=== PATIENT | female | born 1950 | race Caucasian/White ===

== ENCOUNTER 2017-10-19 15:12 | Observation (INO) ==
[2017-10-19] MEDS ORDERED: *HR* FentaNYL (PF) 100 MCG/2 ML VIAL IVP ONE ×2 (15:26→16:04)
[2017-10-19] MEDS ORDERED: 0.9 % Sodium Chloride 1,000 ML IVC ONE (15:26)
[2017-10-19] MEDS ORDERED: Ondansetron 4 MG/2 ML VIAL IVP ONE (15:26)
--- NOTE | 2017-10-19 15:31 | Emergency Department Note ---
Disposition Clinical Impression: Diverticulitis, Bigeminy Abdominal pain Qualifiers: Abdominal location: generalized Qualified Code(s): R10.84 - Generalized abdominal pain Leukocytosis Qualifiers: Leukocytosis type: unspecified Qualified Code(s): D72.829 - Elevated white blood cell count, unspecified Disposition: Admitted As Inpatient Condition: Fair Referrals: Robbie Croft DO [Primary Care Provider] - Forms: ED Satisfaction Letter, Work/School Release Time of Disposition: 16:05 Abdominal Pain HPI - General Chief Complaint: ED Abdominal Pain Stated Complaint: rectal bleeding Time Seen by Provider: 10/19/17 15:22 Source: patient Mode of arrival: ambulatory Limitations: no limitations Nursing Notes Reviewed: Yes Vital Signs Reviewed: Yes - History of Present Illness HPI Narrative: Patient presents with diffuse abdominal pain. She also has hematochezia. She was diagnosed with diverticulosis per colonoscopy recently. She also states she has a history of chronic inflammatory bowel disease-ulcerative colitis. Pt Subjective Complaint: abdominal pain Onset (ago): day(s) Consistency: intermittent Location: diffuse Pain Severity: severe Pain Scale: 10 Quality: cramping, aching Radiation: none Migration to: no migration Improves with: nothing Worsens with: nothing Associated symptoms: Reports: nausea, vomiting, diarrhea, hematochezia Treatments prior to arrival: none - Related Data Home Medications Medication Instructions Recorded Confirmed ALPRAZolam [Xanax 0.25 MG Tablet] 0.25 mg PO BID PRN 01/23/17 01/23/17 Amlodipine Besylate 10 mg PO DAILY 01/23/17 01/23/17 Aspirin 81 mg PO DAILY 01/23/17 01/23/17 Clopidogrel [Plavix] 75 mg PO DAILY 01/23/17 01/23/17 Ergocalciferol (VITAMIN D2) 400 unit PO DAILY 01/23/17 01/23/17 [Vitamin D] Sotalol HCl [Betapace] 120 mg PO BID 01/23/17 01/23/17 cloNIDine HCl [Clonidine HCl] 0.2 mg PO BID 01/23/17 01/23/17 hydrALAZINE [HydrALAZINE] 25 mg PO TID 01/23/17 01/23/17 hydroCHLOROthiazide 25 mg PO DAILY 01/23/17 01/23/17 [Hydrochlorothiazide] Allergies Allergy/AdvReac Type Severity Reaction Status Date / Time cilostazol [From Pletal] Allergy See Verified 01/23/17 07:33 Comments lisinopril AdvReac Cough Verified 01/23/17 07:33 metoprolol AdvReac Cough Verified 01/23/17 07:33 [id number] Reductase AdvReac Cough Verified 01/23/17 07:33 Inhibitor [Statins] All systems ED: reviewed and negative except as stated. Constitutional: Reports: as per HPI Eyes: Reports: as per HPI ENT ED: Reports: as per HPI Cardiovascular: Reports: as per HPI Respiratory: Reports: as per HPI Gastrointestinal: Reports: abdominal pain, nausea, vomiting, hematochezia Genitourinary: Reports: as per HPI Musculoskeletal: Reports: back pain Integumentary: Reports: as per HPI Neurological: Reports: as per HPI Psychiatric: Reports: as per HPI Endocrine: Reports: as per HPI Hematological/Lymphatic: Reports: as per HPI Allergic/Immunologic: Reports: as per HPI Abdominal Pain PMH - Past Medical History Medical history: Reports: coronary artery disease, diabetes, hypertension, other Female Surgical History: Reports: other Psychiatric history: Reports: no psych history - Social History Smoking status: Former smoker Alcohol use: Reports: none Drug use: Reports: none Physical Exam - General Limitations: no limitations General appearance: alert, anxious - Head Head exam: atraumatic - Eye Eye exam: Present: normal appearance - ENT ENT exam: normal exam - Neck Neck exam: Present: normal inspection, full ROM - Chest Chest inspection: Present: normal inspection, symmetric chest wall rise - Respiratory Respiratory exam: Present: normal lung sounds bilaterally - Cardiovascular Cardiovascular exam: Present: regular rate, irregular rhythm - Abdominal Exam Abdominal exam: Present: tenderness, other (mild diffuse tenderness. no guarding or rebound). Absent: guarding, rebound - Rectal Exam Rectal exam: Present: deferred - Extremities Exam Extremities exam: Present: normal inspection - Neurological Exam Neurological exam: Present: alert, oriented X3, CN II-XII intact - Psychiatric Psychiatric exam: Present: anxious - Skin Skin exam: Present: warm, dry, intact Course Course Narrative: Patient presents with diffuse abdominal pain and hematochezia. She has a recent history of diverticulosis per colonoscopy. Concern for diverticulitis versus other acute surgical pathology. Noncontrast CT of her abdomen and pelvis ordered. I will give her IV fluids and symptomatic therapy. She will be reassessed Vital Signs Temperature 97.8 F 10/19/17 15:18 Pulse Rate 56 10/19/17 15:18 Respiratory Rate 14 10/19/17 15:18 Blood Pressure 138/81 10/19/17 15:18 O2 Sat by Pulse Oximetry 97 10/19/17 15:18 Temperature 97.8 F 10/19/17 15:18 Pulse Rate 56 10/19/17 15:18 Respiratory Rate 14 10/19/17 15:18 Blood Pressure 138/81 10/19/17 15:18 O2 Sat by Pulse Oximetry 97 10/19/17 15:18 Oxygen Delivery Oxygen Delivery Room Air Abdominal Pain - Medical Records Medical records reviewed: Yes I reviewed the patient's medical records. Recent colonoscopy report reviewed - Lab Data Lab results reviewed: Yes I reviewed the patient's lab results. Result diagrams: 10/19/17 15:35 Lab Results 10/19/17 10/19/17 Range/Units 15:35 15:35 WBC 17.8 H (4.3-11.1) K/mcL RBC 5.71 H (3.82-4.97) M/mcL Hgb 16.1 H (11.5-15.4) g/dL Hct 46.9 H (35.3-44.9) % MCV 82.1 L (83.0-100.0) fL MCH 28.2 (28.0-33.3) pg MCHC 34.3 (31.6-35.5) g/dL RDW 14.0 (11.5-14.5) % Plt Count 364 (140-400) K/mcL MPV 10.5 (9.4-12.4) fL Immature Gran % 0.6 (0-4) % Seg Neutrophils % 85.4 % Lymphocytes % 9.6 % Monocytes % 3.7 % Eosinophils % 0.3 % Basophils % 0.4 % Neutrophils # 15.2 H (1.6-8.9) K/mcL Lymphocytes # 1.7 (0.6-4.6) K/mcL Monocytes # 0.7 (0.0-1.3) K/mcL Eosinophils # 0.1 (0.0-0.6) K/mcL Basophils # 0.1 (0.0-0.2) K/mcL PT 10.7 (9.4-12.1) Seconds INR 1.0 - Radiology Data Radiology results reviewed: Yes I reviewed the patient's radiology results. - EKG Data EKG attestation: Yes I reviewed and interpreted this EKG. EKG results narrative: Normal sinus rhythm with bigeminy pattern. Rate 89 NC 189 QRS 97 QT/QTC 389/ 436. Study compared to previous dictated 04/22/12
[2017-10-19 15:51] LABS: Basophils # 0.1 K/mcL (0.0-0.2); Basophils % 0.4 %; Eosinophils # 0.1 K/mcL (0.0-0.6); Eosinophils % 0.3 %; Hematocrit 46.9 % (35.3-44.9); Hemoglobin 16.1 g/dL (11.5-15.4); Immature Granulocytes % 0.6 % (0-4); Lymphocytes # 1.7 K/mcL (0.6-4.6); Lymphocytes % 9.6 %; Mean Corpuscular HGB Conc 34.3 g/dL (31.6-35.5); Mean Corpuscular Hemoglobin 28.2 pg (28.0-33.3); Mean Corpuscular Volume 82.1 fL (83.0-100.0); Mean Platelet Volume 10.5 fL (9.4-12.4); Monocytes # 0.7 K/mcL (0.0-1.3); Monocytes % 3.7 %; Neutrophils # 15.2 K/mcL (1.6-8.9); Platelet Count 364 K/mcL (140-400); Red Blood Count 5.71 M/mcL (3.82-4.97); Segmented Neutrophils % 85.4 %
[2017-10-19 15:58] LABS: Prothrombin Time 10.7 Seconds (9.4-12.1)
[2017-10-19] MEDS ORDERED: MetroNIDAZOLE 500 MG/100 ML 500 MG/100 ML BAG IVPB ONE (16:09)
[2017-10-19 16:12] LABS: Alanine Aminotransferase 26 Units/L (7-52); Albumin 4.5 g/dL (3.5-5.7); Albumin/Globulin Ratio 1.4 (1.1-2.2); Alkaline Phosphatase 100 Units/L (34-104); Aspartate Amino Transferase 17 Units/L (13-39); BUN/Creatinine Ratio 26 (6-26); Bilirubin,Total 0.6 mg/dL (0.3-1.0); Blood Urea Nitrogen 27 mg/dL (8-23); Calcium 9.7 mg/dL (8.6-10.3); Carbon Dioxide 26 mEq/L (23-29); Chloride 96 mEq/L (98-107); Globulin 3.2 g/dL (2.4-3.5); Glucose 254 mg/dL (70-105); Lipase 30 Units/L (11-82); Osmolality,Calculated 292 (280-300); Potassium 3.2 mEq/L (3.5-5.1); Sodium 134 mEq/L (136-145); Total Protein 7.7 g/dL (6.4-8.9); eGFR For African Americans > 60 (> 60); eGFR For Non-African Americans 53 (> 60)
[2017-10-19] MEDS ORDERED: Naloxone 0.4 MG/ML INJ IVP PRN (17:36)
[2017-10-19] MEDS ORDERED: Exenatide Microspheres [Bydureon Bcise] 2 MG SQ SCH (17:45)
[2017-10-19] MEDS ORDERED: *HR* LORazepam 2 MG/ML VIAL IVP PRN (17:47)
[2017-10-19] MEDS ORDERED: *HR* Metoprolol 5 MG/5 ML VIAL IVP PRN (17:50)
--- NOTE | 2017-10-19 18:48 | Internal Med History&Physical ---
Date of Encounter: 10/19/17 Time of Encounter: 16:30 Internal Medicine - H&P: HPI Chief complaint: Abdominal pain/N/V Admitted From: Emergency Dept Plans for Post Hospital Care: Home History of present illness: Ms. Thomas is a 67 year old female w/PMH of CAD, diabetes, HTN, and anxiety presents to ED with chief complaint of abdominal pain, nausea, and vomiting since this morning. Patient reports no alleviating factors. Patient also reports bloody and/or melanotic bowel movements today. States she had colonoscopy approximately one month ago and was diagnosed with diverticulosis. Also states she was diagnosed with chronic ulcerative colitis 30 years ago. Patient reports chills, nausea, vomiting, and chest discomfort due to vomiting but denies fever, recent illness, changes in vision, cough, congestion, shortness of breath, constipation, dizziness, lightheadedness, numbness, tingling, pre-syncope, or syncope. Past Med Surg Social Fam HX - Past Medical History Source: patient, old records reviewed Medical history: coronary artery disease, diabetes, hypertension, other Psychiatric history: no psych history - Past Surgical History Surgical History: cancer surgery, cholecystectomy, other - Social History Smoking Status: Former smoker Smokeless Tobacco Status: No Alcohol use: none Drug use: none - Family History Father Race: Family Member Ethnicity: Non- Living Status: Age at : 67 Cause of : NM Hx Family Cardiac Disorders: Yes (NM, HTN, HLD) Mother Race: Family Member Ethnicity: Non- Living Status: Age at : 68 Cause of : NM Hx Family Cardiac Disorders: Yes (NM, CVA, HTN) Hx Family Neurologic Disorders: Yes (CVA) Brother Race: Family Member Ethnicity: Non- Living Status: Age at : 62 Cause of : NM Hx Family Cardiac Disorders: Yes (NM, HTN, HLD) Hx Family Endocrine Disorder: Yes (DM) Internal Medicine - H&P: Meds ALPRAZolam [Xanax 0.25 MG Tablet] 0.25 mg PO BID PRN 01/23/17 [History] Amlodipine Besylate 10 mg PO DAILY 01/23/17 [History] Clopidogrel [Plavix] 75 mg PO DAILY 01/23/17 [History] Ergocalciferol (VITAMIN D2) [Vitamin D] 400 unit PO DAILY 01/23/17 [History] Sotalol HCl [Betapace] 120 mg PO BID 01/23/17 [History] cloNIDine HCl [Clonidine HCl] 0.2 mg PO DAILY 01/23/17 [History] hydrALAZINE [HydrALAZINE] 25 mg PO TID 01/23/17 [History] hydroCHLOROthiazide [Hydrochlorothiazide] 25 mg PO DAILY 01/23/17 [History] Aspirin [Ecotrin] 325 mg PO DAILY 10/19/17 [History] Exenatide Microspheres [Bydureon Bcise] 2 mg SQ QWEEK 10/19/17 [History] 3 Allergy/AdvReac Type Severity Reaction Status Date / Time cilostazol [From Pletal] Allergy See Verified 10/19/17 16:12 Comments lisinopril AdvReac Cough Verified 10/19/17 16:12 metoprolol AdvReac Cough Verified 10/19/17 16:12 [id number] Reductase AdvReac Cough Verified 10/19/17 16:12 Inhibitor [Statins] All Systems PM: A 10-system review of systems was performed and is negative for pertinent findings except as documented above in the HPI. - Constitutional Constitutional: as per HPI, chills, no fever(s), no night sweats - EENT Eyes: no change in vision, no discharge, no pain, no photophobia Ears: no ear discharge, no ear pain, no tinnitus Nose, mouth and throat: no dysphagia, no nasal discharge, no neck pain, no sore throat - Breasts Breasts: as per HPI - Cardiovascular Cardiovascular ROS IM: as per HPI, other (Chest discomfort from repeated vomiting), no chest pain, no diaphoresis, no dyspnea, no lightheadedness, no palpitations, no syncope - Respiratory Respiratory: no cough, no dyspnea, no wheezing, no excessive phlegm production - Gastrointestinal Gastrointestinal: as per HPI, abdominal pain, hematochezia, melena, nausea, vomiting, no diarrhea, no hematemesis - Genitourinary Genitourinary: no change in urinary stream, no dysuria, no flank pain, no hematuria Menstruation: as per HPI - Musculoskeletal Musculoskeletal ROS IM: no numbness, no tingling - Integumentary Integumentary IM: no rash, no unusual bruising - Neurological Neurological ROS: no confusion, no convulsions, no focal weakness, no numbness, no tingling, no tremor(s) - Psychiatric Psychiatric: as per HPI - Endocrine Endocrine IM: as per HPI - Hematologic/Lymphatic Hematologic/Lymphatic: no easy bruising - Allergic/Immunologic Allergic/Immunologic: as per HPI - Constitutional Vitals: Temp Pulse Resp BP Pulse Ox 98.3 F 69 14 184/92 96 10/19/17 17:43 10/19/17 17:43 10/19/17 17:43 10/19/17 17:43 10/19/17 17:43 General appearance: Present: cooperative, A&O X 3, pleasant, obese, severe distress (Abdominal pain/N/V), answers questions appropriately - Head Head exam: Present: atraumatic, normocephalic - Eye Eye exam: Present: PERRL, conjuntiva pink, sclera anicteric Pupils: Present: PERRL - ENT ENT exam: Present: normal exam - Neck Neck exam general surgery: Present: normal inspection - Respiratory Respiratory exam: Present: CTAB. Absent: accessory muscle use, rales, rhonchi, wheezes - Cardiovascular Cardiovascular exam: Present: RRR, +S1, +S2. Absent: diastolic murmur, gallop, rubs, systolic murmur - GI/Abdominal GI/Abdominal exam: Present: normal bowel sounds, soft, tenderness, no peritoneal signs. Absent: distended - Rectal Rectal exam: Present: deferred - Additional comments: exam deferred. - Extremities Exam Extremities exam: Present: warm, radial pulses palpable and symmetrical. Absent : calf tenderness, cyanotic, pedal edema - Back Exam Back exam: Present: normal inspection - Neurological Exam Neurological exam: Present: alert, CN II-XII intact, oriented X3, no focal deficits. Absent: pronater drift, facial droop, speech deficit - Psychiatric Psychiatric exam: Present: anxious (D/t pain) - Skin Skin exam: Present: dry, intact Internal Med - H&P Results - Labs CBC & Chem 7: 10/19/17 15:35 10/19/17 15:35 - EKG Data EKG shows normal: sinus rhythm - EKG Data Prior EKG available for review: yes EKG comments: 10/19/17 18:54 EKG dated 04/22/12 shows sinus rhythm with left ventricular hypertrophy and anterolateral ST-T changes which may be due to hypertrophy and/or ischemia. EKG dated 10/19/17 shows sinus rhythm with frequent ventricular premature complexes in a bigeminal pattern and nonspecific ST and T-wave abnormality. - Diagnostic Studies CT scan - abdomen Additional comments: Impressions Abdomen/Pelvis CT 10/19/17 15:25 IMPRESSION: Acute diverticulitis. No fluid collection or free air. Mild wall thickening and inflammatory change of the rectum consistent with proctitis. D/ / Janelle Damon MD / Janelle Damon MD Interpreting Provider: Janelle Damon MD - Assessment and plan (1) Diverticulitis Current Visit: Yes Status: Acute Assessment and plan: Acute diverticulitis on CT of abdomen today. Pt. reports abdominal pain this a.m. accompanied by severe N/V. Hx of chronic ulcerative colitis diagnosed 30 years ago. Patient reports colonoscopy approximately one month ago with diagnosis of diverticulosis. Reports hematochezia and melanotic stools today. IVP Protonix 40 mg BID. IVP Phenergan 12.5 mg Q6HR PRN for N/V. NPO. IVPB Ciprofloxacin 40 mg Q12HR and Flagyl 500 mg Q8HR for infection coverage. Current leukocytosis of 17.8. Pt. afebrile and asymptomatic for infection. Monitor pt. and f/u labs closely. Pt. discussed w/Dr. Brito who agrees w/ plan of care. Pt. is moderate risk for further morbidity d/t current diverticulitis, abdominal pain w/N/V, hx of ulcerative colitis, current hematochezia and melanotic stools, and risk factors. Inpatient. (2) Nausea and vomiting Current Visit: Yes Status: Acute Assessment and plan: Acute N/V r/t current diverticulitis. NPO. BG checks Q6HR. IVP Phenergan 12.5 mg Q6HR PRN for N/V. Monitor I&O and daily weight. Qualifiers: Vomiting type: cyclical vomiting Qualified Code(s): G43.A0 - Cyclical vomiting, not intractable (3) Hypokalemia, gastrointestinal losses Current Visit: Yes Status: Acute Assessment and plan: Acute hypokalemia w/potassium of 3.2 on admission. 10 mEq IVPB potassium given in ED. Potassium re-check at 00:00. Will administer more IVPB potassium if re- check is not WNL. Continuous cardiac telemetry. (4) Abdominal pain Current Visit: Yes Status: Acute Assessment and plan: Acute abdominal pain that began this a.m. Pt. states she has abdominal pain occasionally but not to this severity. CT of abdomen shows acute diverticulitis. SL Oxycodone 10 mg Q6HR PRN for severe pain ordered. Will adjust pain medication to pts. pain and IVP availability. NPO. Monitor I&O and daily weight. IVP Phenergan 12.5 mg Q6HR PRN for N/V. IVP Protonix 40 mg BID. Qualifiers: Abdominal location: generalized Qualified Code(s): R10.84 - Generalized abdominal pain (5) Hematochezia Current Visit: Yes Status: Acute Assessment and plan: Acute hematochezia and melanotic stools today. Pts. Hgb 16.1 and Hct 46.9 on admission. Pt. reports dx of chronic ulcerative colitis 30 years ago. States she had colonoscopy approximately 1 month ago which showed diverticulosis. CT of the abdomen today shows acute diverticulitis. No fluid collection or free air. Mild wall thickening and inflammatory change of the rectum consistent with proctitis. Monitor H/H in f/u labs and I&O. (6) Bigeminy Current Visit: Yes Status: Acute Assessment and plan: Acute on chronic hx of bigeminy. EKG today shows sinus rhythm with frequent ventricular premature complexes in a bigeminal pattern and nonspecific ST and T- wave abnormality. Pt. states she takes Sotalol for this. Currently NPO d/t N/V. Will replace w/IVP metoprolol 2.5 mg Q6HR PRN. Continuous cardiac monitoring. (7) Leukocytosis Current Visit: Yes Status: Acute Assessment and plan: Acute leukocytosis w/WBC of 17.8 most likely d/t current diverticulitis. Pt. is currently afebrile and asymptomatic w/VS of 98.3 F temp, HR 69, RR 14, BP 184/92 , and SpO2 of 96% on RA. Pt. does not currently meet sepsis criteria but will be monitored closely for changes. IV 0.9 NS @ 100 mL/HR. Qualifiers: Leukocytosis type: unspecified Qualified Code(s): D72.829 - Elevated white blood cell count, unspecified (8) CAD (coronary artery disease) Current Visit: Yes Status: Chronic Assessment and plan: Hx of chronic CAD. Pt. is currently NPO d/t N/V so hydralazine 10 mg IVP Q6HR PRN w/parameters ordered for HTN and metoprolol for HR. Continuous cardiac telemetry. Qualifiers: Coronary Disease-Associated Artery/Lesion type: [place] artery [place] vs. transplanted heart: [place] heart Associated angina: angina presence unspecified Qualified Code(s): I25.10 - Atherosclerotic heart disease of [place] coronary artery without angina pectoris (9) Diabetes Current Visit: Yes Status: Chronic Assessment and plan: Hx of chronic diabetes. Patient currently takes 2 mg exenatide microspheres injections weekly. Will continue and add low-dose correction insulin sliding scale w/hypoglycemic protocol. BG checks Q6HR d/t NPO status. Change when/if pt. able to eat. A1c in a.m. labs. Qualifiers: Diabetes mellitus type: type 2 Diabetes mellitus usp insulin use: unspecified usp insulin use status Diabetes mellitus complication status : with unspecified complications Qualified Code(s): E11.8 - Type 2 diabetes mellitus with unspecified complications (10) HTN (hypertension) Current Visit: Yes Status: Chronic Assessment and plan: Hx of chronic HTN. Monitor pt. and VS. Pt. is NPO d/t N/V so will add hydralazine 10 mg Q6HR PRN w/parameters. Qualifiers: Hypertension type: essential hypertension Qualified Code(s): I10 - Essential (primary) hypertension (11) DVT prophylaxis Current Visit: Yes Status: Acute Assessment and plan: Bilateral SCDs on LEs for DVT prophylaxis d/t pts. report of hematochezia and melanotic stools. - Time Spent With Patient Total time spent is greater than 50% in coordination of care (as documented) at patient's floor/unit and/or counseling patient: Greater than 35 minutes
[2017-10-19] MEDS: 0.9 % Sodium Chloride 1,000 ML IVC SCH (18:52)
[2017-10-19] MEDS ORDERED: D5% in Water 1,000 ML IVC PRN (18:57)
[2017-10-19] MEDS ORDERED: Dextrose Gel 15 GM/37.5 ML TUBE PO PRN ×2 (18:57)
[2017-10-19] MEDS ORDERED: *HR* Dextrose 50 % in Water (Syg) 50 ML SYRINGE IVP PRN (18:57)
[2017-10-19] MEDS: OXYCODONE Oral CONC 10 MG/0.5 ML ORAL.SYG SL PRN (19:05)
--- NOTE | 2017-10-19 20:45 | Event Note ---
Date of Encounter: 10/19/17 Time of Encounter: 20:41 Patient was seen and examined. I agree with the H&P as written by Robbie Hernandez NP. Briefly, patient is here wiht abd pain/nausea/vomiting since earlier today. Work up showed acute diverticulitis. Labs shows signs of dehydration and hypokalemia. Patient is hypertensive but otherwise stable A/Ox3, NAD RRR, S1, S2, no m/r/g CTAB ABD is tender to palpation in lower abdomen with no rebound. +BS No edema. 2+ DP Nonfocal Admit to hospitalist cipro/flagyl IVF NPO pain control anti-emetics IV hydralazine PRN DVT pprx
[2017-10-19] MEDS: *HR* Promethazine 25 MG/ML VIAL IVP PRN (21:17)
[2017-10-19] MEDS: Insulin LISPRO 300 UNITS/3 ML VIAL SQ SCH (23:09)
[2017-10-19] MEDS: MetroNIDAZOLE 500 MG/100 ML 500 MG/100 ML BAG IVPB SCH (23:56)
[2017-10-20 00:50] LABS: Basophils % 0.2 %; Eosinophils % 0.1 %; Hematocrit 42.6 % (35.3-44.9); Immature Granulocytes % 0.6 % (0-4); Lymphocytes # 1.7 K/mcL (0.6-4.6); Lymphocytes % 12.7 %; Mean Corpuscular HGB Conc 33.1 g/dL (31.6-35.5); Mean Corpuscular Hemoglobin 27.2 pg (28.0-33.3); Mean Corpuscular Volume 82.1 fL (83.0-100.0); Mean Platelet Volume 10.3 fL (9.4-12.4); Monocytes # 0.8 K/mcL (0.0-1.3); Monocytes % 6.4 %; Neutrophils # 10.5 K/mcL (1.6-8.9); Platelet Count 305 K/mcL (140-400); Red Blood Count 5.19 M/mcL (3.82-4.97); Red Cell Distribution Width 14.2 % (11.5-14.5)
[2017-10-20 00:51] LABS: Hemoglobin 14.1 g/dL (11.5-15.4)
[2017-10-20 00:59] LABS: INR 1.1; Prothrombin Time 11.7 Seconds (9.4-12.1)
[2017-10-20 01:02] LABS: Activated Partial Thrombo Time 28.5 Seconds (26.0-36.0)
[2017-10-20 01:13] LABS: Alanine Aminotransferase 20 Units/L (7-52); Albumin 3.7 g/dL (3.5-5.7); Albumin/Globulin Ratio 1.3 (1.1-2.2); Alkaline Phosphatase 82 Units/L (34-104); Aspartate Amino Transferase 13 Units/L (13-39); BUN/Creatinine Ratio 23 (6-26); Bilirubin,Total 0.5 mg/dL (0.3-1.0); Blood Urea Nitrogen 18 mg/dL (8-23); Calcium 8.3 mg/dL (8.6-10.3); Carbon Dioxide 23 mEq/L (23-29); Chloride 103 mEq/L (98-107); Chol/HDL Ratio 6.4 (0-4.9); Cholesterol 224 mg/dL (< 200); Globulin 2.8 g/dL (2.4-3.5); Glucose 162 mg/dL (70-105); HDL Cholesterol 35 mg/dL (40-59); LDL Cholesterol,Calculated 167 mg/dL (0-99); Magnesium 1.8 mg/dL (1.6-2.6); Osmolality,Calculated 285 (280-300); Sodium 135 mEq/L (136-145); Total Protein 6.5 g/dL (6.4-8.9); Triglycerides 112 mg/dL (< 150); eGFR For African Americans > 60 (> 60); eGFR For Non-African Americans > 60 (> 60)
[2017-10-20] MEDS: Pantoprazole 40 MG VIAL IVP SCH ×2 (05:44→17:33)
[2017-10-20] MEDS: 0.9 % Sodium Chloride 1,000 ML IVC SCH ×2 (05:45→17:32)
[2017-10-20] MEDS: MetroNIDAZOLE 500 MG/100 ML 500 MG/100 ML BAG IVPB SCH ×3 (08:27→23:46)
[2017-10-20] MEDS: *HR* Promethazine 25 MG/ML VIAL IVP PRN ×2 (08:28→15:27)
[2017-10-20] MEDS: Insulin LISPRO 300 UNITS/3 ML VIAL SQ SCH ×4 (08:28→21:23)
[2017-10-20] MEDS: OXYCODONE Oral CONC 10 MG/0.5 ML ORAL.SYG SL PRN (10:56)
[2017-10-20] MEDS ORDERED: ALPRAZolam 0.25 MG TABLET PO PRN (17:13)
[2017-10-20] MEDS: hydrALAZINE 25 MG TABLET PO SCH (20:41)
[2017-10-20] MEDS ORDERED: NON-FORMULARY MEDICATION 1 EACH EACH (Sotalol Hcl [Betapace] 120 MG) PO SCH (21:00)
--- NOTE | 2017-10-20 22:50 | Internal Med Progress Note ---
Date of Encounter: 10/20/17 Time of Encounter: 19:00 - Assessment and plan (1) Acute diverticulitis Status: Acute Assessment and plan: Getting better. Will start clear liquids. Will continue IV ciprofloxacin/IV metronidazole. (2) Acute hypokalemia Status: Acute Assessment and plan: Secondary to acute diverticulitis and IV fluids. Will give for supplemental oral potassium chloride. (3) Bigeminy Status: Acute Assessment and plan: She has chronic bygemini. Was restarted her sotalol. (4) CAD (coronary artery disease) Status: Chronic Assessment and plan: Stable/under control. With continuous sotalol and aspirin. Qualifiers: Coronary Disease-Associated Artery/Lesion type: [place] artery [place] vs. transplanted heart: [place] heart Associated angina: angina presence unspecified Qualified Code(s): I25.10 - Atherosclerotic heart disease of [place] coronary artery without angina pectoris - Time Spent With Patient Total time spent is greater than 50% in coordination of care (as documented) at patient's floor/unit and/or counseling patient: - Subjective Interval history: Feels better. Her abdominal pain is relatively mild. He is located in left lower quadrant. She denies nausea and vomiting. She denies chest pain. She denies dyspnea, coughing and wheezing. She has normal urination. - Constitutional Vitals: Temp Pulse Resp BP Pulse Ox 99.3 F 75 15 157/81 92 10/20/17 18:59 10/20/17 18:59 10/20/17 18:59 10/20/17 18:59 10/20/17 20:54 General appearance: Present: cooperative, A&O X 3, pleasant, obese, severe distress (Abdominal pain/N/V), answers questions appropriately - Respiratory Respiratory exam: Present: CTAB. Absent: accessory muscle use, rales, rhonchi, wheezes - Cardiovascular Cardiovascular exam: Present: RRR, +S1, +S2. Absent: diastolic murmur, gallop, rubs, systolic murmur - GI/Abdominal GI/Abdominal exam: Present: normal bowel sounds, soft, no peritoneal signs. Absent: distended Additional comments: There is mild/moderate tenderness in the left lower quadrant. I cannot feel any abnormal mass. - Skin Skin exam: Present: dry, intact Internal Medicine: Result - Labs CBC & Chem 7: 10/21/17 05:18 10/21/17 05:18 Labs: Short CBC 10/20/17 Range/Units 00:31 WBC 13.2 H (4.3-11.1) K/mcL Hgb 14.1 D (11.5-15.4) g/dL Hct 42.6 (35.3-44.9) % Plt Count 305 (140-400) K/mcL Neutrophils # 10.5 H (1.6-8.9) K/mcL BMP 10/20/17 00:31 Sodium 135 L Potassium 3.0 L Chloride 103 Carbon Dioxide 23 BUN 18 Creatinine 0.77 Glucose 162 H Calcium 8.3 L Liver Function 10/20/17 Range/Units 00:31 Total Bilirubin 0.5 (0.3-1.0) mg/dL AST 13 (13-39) Units/L ALT 20 (7-52) Units/L Alkaline Phosphatase 82 (34-104) Units/L Albumin 3.7 (3.5-5.7) g/dL - ABG Interpretation ABG results: PT/INR, D-dimer PT 11.7 Seconds (9.4-12.1) 10/20/17 00:31 - VTE Documentation of Mechanical Device: Intermittent pneumatic compression device Consult Discharge Plan - Plan Instructions: Diverticulitis (DC) Additional Instructions: Follow up with PCP in one week. Prescriptions: Ciprofloxacin [Cipro] 500 mg PO BID 12 Days #24 tablet metroNIDAZOLE [Flagyl] 500 mg PO TID 12 Days #36 tablet
[2017-10-21 05:48] LABS: Basophils % 0.5 %; Eosinophils # 0.1 K/mcL (0.0-0.6); Eosinophils % 1.4 %; Hematocrit 43.6 % (35.3-44.9); Hemoglobin 13.9 g/dL (11.5-15.4); Immature Granulocytes % 0.4 % (0-4); Lymphocytes # 1.7 K/mcL (0.6-4.6); Lymphocytes % 22.7 %; Mean Corpuscular HGB Conc 31.9 g/dL (31.6-35.5); Mean Corpuscular Hemoglobin 26.8 pg (28.0-33.3); Mean Corpuscular Volume 84.2 fL (83.0-100.0); Mean Platelet Volume 10.3 fL (9.4-12.4); Monocytes # 0.7 K/mcL (0.0-1.3); Monocytes % 9.2 %; Platelet Count 242 K/mcL (140-400); Red Blood Count 5.18 M/mcL (3.82-4.97); Red Cell Distribution Width 14.3 % (11.5-14.5); Segmented Neutrophils % 65.8 %
[2017-10-21] MEDS: 0.9 % Sodium Chloride 1,000 ML IVC SCH (06:10)
[2017-10-21] MEDS: Pantoprazole 40 MG VIAL IVP SCH (06:10)
[2017-10-21 06:15] LABS: Alanine Aminotransferase 17 Units/L (7-52); Albumin 3.5 g/dL (3.5-5.7); Albumin/Globulin Ratio 1.3 (1.1-2.2); Alkaline Phosphatase 75 Units/L (34-104); Aspartate Amino Transferase 13 Units/L (13-39); BUN/Creatinine Ratio 11 (6-26); Bilirubin,Total 0.4 mg/dL (0.3-1.0); Blood Urea Nitrogen 8 mg/dL (8-23); Calcium 8.2 mg/dL (8.6-10.3); Carbon Dioxide 25 mEq/L (23-29); Chloride 108 mEq/L (98-107); Globulin 2.7 g/dL (2.4-3.5); Glucose 159 mg/dL (70-105); Osmolality,Calculated 290 (280-300); Potassium 3.3 mEq/L (3.5-5.1); Sodium 139 mEq/L (136-145); Total Protein 6.2 g/dL (6.4-8.9); eGFR For African Americans > 60 (> 60); eGFR For Non-African Americans > 60 (> 60)
[2017-10-21 08:42] LABS: Estimated Average Glucose 272 mg/dl; Hemoglobin A1C 11.1 %
[2017-10-21] MEDS: MetroNIDAZOLE 500 MG/100 ML 500 MG/100 ML BAG IVPB SCH (08:46)
[2017-10-21] MEDS: hydrALAZINE 25 MG TABLET PO SCH ×2 (08:46→15:17)
[2017-10-21] MEDS: Insulin LISPRO 300 UNITS/3 ML VIAL SQ SCH ×2 (08:53→11:39)
[2017-10-21] MEDS ORDERED: cloNIDine HCl 0.1 MG TABLET PO SCH (09:00)
[2017-10-21] MEDS ORDERED: Aspirin Enteric Coated 325 MG Tablet PO SCH (09:00)
[2017-10-21] MEDS ORDERED: hydroCHLOROthiazide 25 MG TABLET PO SCH (09:00)
[2017-10-21] MEDS ORDERED: amLODIPine 5 MG TABLET PO SCH (09:00)
[2017-10-21] MEDS ORDERED: Cholecalciferol (D-3) 1,000 UNIT TABLET PO SCH (09:00)
--- NOTE | 2017-10-21 14:53 | Discharge Summary ---
- NOTES TO OUTPATIENT PROVIDER Notes to Outpatient Provider: 12 more days of antibiotics, Cipro and Flagyl for sigmoid diverticulitis. Was a question of a GI bleed on admission which is likely a small hemorrhoidal bleed which has stopped. No evidence of blood loss. She was continued on aspirin and Plavix. Date of Encounter: 10/21/17 Time of Encounter: 15:00 - Discharge Diagnosis (1) Diverticulitis Priority: Primary Status: Acute Assessment and Plan: Acute diverticulitis on CT of abdomen today. Pt. reports abdominal pain this a.m. accompanied by severe N/V. Hx of chronic ulcerative colitis diagnosed 30 years ago. Patient reports colonoscopy approximately one month ago with diagnosis of diverticulosis. Reports hematochezia and melanotic stools today. IVP Protonix 40 mg BID. IVP Phenergan 12.5 mg Q6HR PRN for N/V. NPO. IVPB Ciprofloxacin 40 mg Q12HR and Flagyl 500 mg Q8HR for infection coverage. Current leukocytosis of 17.8. Pt. afebrile and asymptomatic for infection. Monitor pt. and f/u labs closely. Pt. discussed w/Dr. Brito who agrees w/ plan of care. Pt. is moderate risk for further morbidity d/t current diverticulitis, abdominal pain w/N/V, hx of ulcerative colitis, current hematochezia and melanotic stools, and risk factors. Inpatient. 10/21: Day #2 of 14 abx, po Cipro and Flqagyl Patient doing well. Tolerating diet. Pain is resolved. No nausea or vomiting. Fever. Stable for discharge Follow-up with primary care provider prior to completion of antibiotics, hopefully within a week. (2) Abdominal pain Priority: Secondary Status: Acute Assessment and Plan: Acute abdominal pain that began this a.m. Pt. states she has abdominal pain occasionally but not to this severity. CT of abdomen shows acute diverticulitis. SL Oxycodone 10 mg Q6HR PRN for severe pain ordered. Will adjust pain medication to pts. pain and IVP availability. NPO. Monitor I&O and daily weight. IVP Phenergan 12.5 mg Q6HR PRN for N/V. IVP Protonix 40 mg BID. Qualifiers: Abdominal location: generalized Qualified Code(s): R10.84 - Generalized abdominal pain (3) Bigeminy Priority: Secondary Status: Acute Assessment and Plan: Acute on chronic hx of bigeminy. EKG today shows sinus rhythm with frequent ventricular premature complexes in a bigeminal pattern and nonspecific ST and T- wave abnormality. Pt. states she takes Sotalol for this. Currently NPO d/t N/V. Will replace w/IVP metoprolol 2.5 mg Q6HR PRN. Continuous cardiac monitoring. (4) CAD (coronary artery disease) Priority: Secondary Status: Chronic Assessment and Plan: Hx of chronic CAD. Pt. is currently NPO d/t N/V so hydralazine 10 mg IVP Q6HR PRN w/parameters ordered for HTN and metoprolol for HR. Continuous cardiac telemetry. Qualifiers: Coronary Disease-Associated Artery/Lesion type: ak chin artery [place] vs. transplanted heart: ak chin heart Associated angina: angina presence unspecified Qualified Code(s): I25.10 - Atherosclerotic heart disease of ak chin coronary artery without angina pectoris (5) Diabetes Priority: Secondary Status: Chronic Assessment and Plan: Hx of chronic diabetes. Patient currently takes 2 mg exenatide microspheres injections weekly. Will continue and add low-dose correction insulin sliding scale w/hypoglycemic protocol. BG checks Q6HR d/t NPO status. Change when/if pt. able to eat. A1c in a.m. labs. 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 Monitor pt. and VS. Pt. is NPO d/t N/V so will add hydralazine 10 mg Q6HR PRN w/parameters. Qualifiers: Hypertension type: essential hypertension Qualified Code(s): I10 - Essential (primary) hypertension (7) Hematochezia Priority: Secondary Status: Acute Assessment and Plan: Acute hematochezia and melanotic stools today. Pts. Hgb 16.1 and Hct 46.9 on admission. Pt. reports dx of chronic ulcerative colitis 30 years ago. States she had colonoscopy approximately 1 month ago which showed diverticulosis. CT of the abdomen today shows acute diverticulitis. No fluid collection or free air. Mild wall thickening and inflammatory change of the rectum consistent with proctitis. Monitor H/H in f/u labs and I&O. 10/21: Hemoglobin remained stable. Recent colonoscopy noted. Recommend follow- up primary care provider if any further blood in stool. Patient otherwise is feeling well. Do not suspect she is having an acute bleed. Continue antibiotics that should this should treat bowel inflammation as well related to her diverticulitis. Follow with primary care provider within a week. I performed a rectal exam and the discharge which showed what looks like a healed hemorrhoid that recently bled. (8) Nausea and vomiting Priority: Secondary Status: Acute Assessment and Plan: Acute N/V r/t current diverticulitis. NPO. BG checks Q6HR. IVP Phenergan 12.5 mg Q6HR PRN for N/V. Monitor I&O and daily weight. Qualifiers: Vomiting type: cyclical vomiting Qualified Code(s): G43.A0 - Cyclical vomiting, not intractable (9) Hypokalemia, gastrointestinal losses Priority: Secondary Status: Acute Hospital course: Ms. Thomas is a 67 year old female w/PMH of CAD, diabetes, HTN, and anxiety presents to ED with chief complaint of abdominal pain, nausea, and vomiting since this morning. Patient reports no alleviating factors. Patient also reports bloody and/or melanotic bowel movements today. States she had colonoscopy approximately one month ago and was diagnosed with diverticulosis. Also states she was diagnosed with chronic ulcerative colitis 30 years ago. Patient reports chills, nausea, vomiting, and chest discomfort due to vomiting but denies fever, recent illness, changes in vision, cough, congestion, shortness of breath, constipation, dizziness, lightheadedness, numbness, tingling, pre-syncope, or syncope. 10/21: HTN and pelvis showed acute diverticulitis. Also some findings concerning for mild proctitis. A she was admitted. She had a report dated history of melanotic stools but these resolved. She had a stable hemoglobin. Of note she had a colonoscopy recently as mentioned. Patient was tolerating orals, pain is near completely resolved and she was deemed stable for discharge. She continued on Cipro and Flagyl to complete 14 days therapy. She will follow-up with her primary care provider within a week. Return immediately should she have any more blood in her stool. She will also return should she have fever or any other problems. Patient was initially expected to have greater than 2 nights stay in the hospital but she responded very well to therapy and was discharged much sooner than expected. 1500: Addendum: I further discussed the blood in her stool she had an admission. She states it occurred because of straining. I did a rectal exam did not notice any mass but did notice a small bleeding hemorrhoid which appears to be scabbed over. This was external. Patient was continued on aspirin and Plavix as she was not felt to be having any significant bleeding. She again was advised to return immediately should she have significant bleeding, weakness or any other problem. 36 min spent on dc and coord of care. Discharge discussed with: patient - Time Spent with Patient Total time spent providing and/or coordinating discharge services: Greater than 30 minutes - Discharge Medications Home Medications: ALPRAZolam [Xanax 0.25 MG Tablet] 0.25 mg PO BID PRN 01/23/17 [History] Amlodipine Besylate 10 mg PO DAILY 01/23/17 [History] Clopidogrel [Plavix] 75 mg PO DAILY 01/23/17 [History] Ergocalciferol (VITAMIN D2) [Vitamin D] 400 unit PO DAILY 01/23/17 [History] cloNIDine HCl [Clonidine HCl] 0.2 mg PO DAILY 01/23/17 [History] hydrALAZINE [HydrALAZINE] 25 mg PO TID 01/23/17 [History] hydroCHLOROthiazide [Hydrochlorothiazide] 25 mg PO DAILY 01/23/17 [History] Aspirin [Ecotrin] 325 mg PO DAILY 10/19/17 [History] Exenatide Microspheres [Bydureon Bcise] 2 mg SQ QWEEK 10/19/17 [History] Ciprofloxacin [Cipro] 500 mg PO BID 12 Days #24 tablet 10/21/17 [Rx] Insulin LISPRO [HumaLOG] 0 units SQ TIDAC vial 10/21/17 [Rx] Promethazine [Phenergan] 12.5 mg IVP Q6H PRN vial 10/21/17 [Rx] Sotalol [Betapace] 120 mg PO Q12HR tablet 10/21/17 [Rx] cloNIDine HCl [CloNIDine HCl] 0.2 mg PO DAILY tablet 10/21/17 [Rx] hydrALAZINE [HydrALAZINE] 25 mg PO TID tablet 10/21/17 [Rx] metroNIDAZOLE [Flagyl] 500 mg PO TID 12 Days #36 tablet 10/21/17 [Rx] Allergies/Adverse Reactions: 3 Allergy/AdvReac Type Severity Reaction Status Date / Time cilostazol [From Pletal] Allergy See Verified 10/19/17 16:12 Comments lisinopril AdvReac Cough Verified 10/19/17 16:12 metoprolol AdvReac Cough Verified 10/19/17 16:12 [id number] Reductase AdvReac Cough Verified 10/19/17 16:12 Inhibitor [Statins] Date of admission: 10/19/17 17:36 Primary care physician: Chaka Viramontes Discharging clinician: Natanael Kitchen Anticipated date of discharge: 10/21/17 - Constitutional Vitals: Temp Pulse Resp BP Pulse Ox 97.8 F 72 14 108/71 93 10/21/17 09:57 10/21/17 09:57 10/21/17 09:57 10/21/17 09:57 10/21/17 09:57 General appearance: Present: cooperative, A&O X 3, pleasant, obese, severe distress (Abdominal pain/N/V), answers questions appropriately - Head Head exam: Present: atraumatic, normocephalic - Eye Eye exam: Present: PERRL, conjuntiva pink, sclera anicteric Pupils: Present: PERRL - Neck Neck exam general surgery: Present: supple, trachea midline. Absent: lymphadenopathy - Respiratory Respiratory exam: Present: CTAB. Absent: accessory muscle use, rales, rhonchi, wheezes - Cardiovascular Cardiovascular exam: Present: RRR, +S1, +S2. Absent: diastolic murmur, gallop, rubs, systolic murmur - GI/Abdominal GI/Abdominal exam: Present: tenderness (minimal deep left lower quadrant tenderness to palpation. No rebound or guarding) - Extremities Exam Extremities exam: Present: warm, radial pulses palpable and symmetrical. Absent : calf tenderness, cyanotic, pedal edema - Skin Skin exam: Present: dry, intact - Patient Status Disposition: Home, Self-Care Condition: Fair Overall status at discharge: patient is progressing back to baseline - Discharge Instructions Additional Instructions: Follow up with PCP in one week. - Diet and Activity Activity: resume usual activities as tolerated Diet: advance to your usual diet - VTE Documentation of Mechanical Device: Intermittent pneumatic compression device
[2017-10-21 15:43] VITALS: BP 107/66
--- NOTE | 2017-10-22 06:56 | Electrocardiograph Report ---
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
== END 2017-10-21 17:08 | disposition home or self-care (01) | DRG 392 ==
LOC: EMEROO 15:12 → 3ANU 15:12 → SUATTDRO 17:36
PROVIDERS: ADMIT Hospitalist; ATTEND Internal Medicine

== ENCOUNTER 2020-03-11 16:45 | Inpatient (IN) ==
[2020-03-11 17:32] LABS: Basophils % 0.4 %; Hemoglobin 14.3 g/dL (11.5-15.4); Immature Granulocytes % 0.2 % (0-4); Lymphocytes # 1.1 K/mcL (0.6-4.6); Lymphocytes % 22.5 %; Mean Corpuscular HGB Conc 32.5 g/dL (31.6-35.5); Mean Corpuscular Hemoglobin 27.2 pg (28.0-33.3); Mean Corpuscular Volume 83.8 fL (83.0-100.0); Mean Platelet Volume 9.9 fL (9.4-12.4); Monocytes # 0.6 K/mcL (0.0-1.3); Monocytes % 12.1 %; Neutrophils # 3.2 K/mcL (1.6-8.9); Platelet Count 196 K/mcL (140-400); Red Blood Count 5.25 M/mcL (3.82-4.97); Red Cell Distribution Width 14.4 % (11.5-14.5); Segmented Neutrophils % 64.8 %; White Blood Count 4.9 K/mcL (4.3-11.1)
[2020-03-11 17:39] LABS: INR 1.2; Prothrombin Time 13.5 Seconds (9.4-12.1)
[2020-03-11 17:41] LABS: Activated Partial Thrombo Time 30.5 Seconds (26.0-36.0)
[2020-03-11 17:57] LABS: Alanine Aminotransferase 16 Units/L (7-52); Albumin 3.7 g/dL (3.5-5.7); Albumin/Globulin Ratio 1.2 (1.1-2.2); Alkaline Phosphatase 71 Units/L (34-104); Aspartate Amino Transferase 18 Units/L (13-39); BUN/Creatinine Ratio 33 (6-26); Bilirubin,Direct 0.1 mg/dL (0.0-0.2); Bilirubin,Indirect 0.5 mg/dL (0.0-1.0); Bilirubin,Total 0.6 mg/dL (0.3-1.0); Blood Urea Nitrogen 33 mg/dL (8-23); C-Reactive Protein 19 mg/L (Less than 10); Calcium 8.3 mg/dL (8.6-10.3); Carbon Dioxide 24 mEq/L (23-29); Chloride 94 mEq/L (98-107); Globulin 3.2 g/dL (2.4-3.5); Glucose 146 mg/dL (70-105); Lactate Dehydrogenase 174 Units/L (140-271); Magnesium 2.1 mg/dL (1.6-2.6); Osmolality,Calculated 280 (280-300); Phosphorous 3.1 mg/dL (2.7-4.5); Potassium 3.1 mEq/L (3.5-5.1); Sodium 130 mEq/L (136-145); Total Protein 6.9 g/dL (6.4-8.9); Troponin I < 0.03 ng/mL (< 0.04); eGFR For African Americans > 60 (> 60); eGFR For Non-African Americans 54 (> 60)
[2020-03-11 18:16] LABS: Ferritin 278 ng/mL (10-120)
[2020-03-11] MEDS ORDERED: Naloxone 0.4 MG/ML INJ IVP PRN (20:56)
[2020-03-11] MEDS ORDERED: *HR* Labetalol 20 MG/4 ML SYRINGE IVP PRN (21:01)
[2020-03-11] MEDS ORDERED: Dextrose Gel 15 GM/37.5 ML TUBE PO PRN ×2 (21:04)
[2020-03-11] MEDS ORDERED: *HR* Dextrose 50 % in Water (Vial) 50 ML VIAL IVP PRN (21:04)
[2020-03-11] MEDS ORDERED: D5% in Water 1,000 ML IVC PRN (21:04)
[2020-03-11] MEDS: Ondansetron 4 MG/2 ML VIAL IVP PRN (23:22)
[2020-03-11] MEDS ORDERED: cloNIDine HCL 0.1 MG TABLET PO ONE (23:53)
[2020-03-12] MEDS: Insulin LISPRO 300 UNITS/3 ML VIAL SQ SCH ×4 (00:35→18:46)
[2020-03-12] MEDS: *HR* Enoxaparin 40 MG/0.4 ML SYRINGE SQ SCH (05:57)
[2020-03-12] MEDS: Aspirin Enteric Coated 81 MG Tablet PO SCH (08:18)
[2020-03-12] MEDS: amLODIPine 5 MG TABLET PO SCH (08:18)
[2020-03-12] MEDS: Dexamethasone 4 MG/ML VIAL IVP SCH (08:19)
[2020-03-12] MEDS: Ondansetron 4 MG/2 ML VIAL IVP PRN (08:29)
[2020-03-12 13:21] LABS: Basophils % 0.4 %; Hematocrit 45.2 % (35.3-44.9); Hemoglobin 14.4 g/dL (11.5-15.4); Immature Granulocytes % 0.4 % (0-4); Lymphocytes # 0.7 K/mcL (0.6-4.6); Lymphocytes % 14.4 %; Mean Corpuscular HGB Conc 31.9 g/dL (31.6-35.5); Mean Corpuscular Hemoglobin 27.3 pg (28.0-33.3); Mean Corpuscular Volume 85.6 fL (83.0-100.0); Mean Platelet Volume 10.2 fL (9.4-12.4); Monocytes # 0.2 K/mcL (0.0-1.3); Monocytes % 3.7 %; Neutrophils # 4.2 K/mcL (1.6-8.9); Platelet Count 226 K/mcL (140-400); Red Blood Count 5.28 M/mcL (3.82-4.97); Red Cell Distribution Width 14.7 % (11.5-14.5); Segmented Neutrophils % 81.1 %; White Blood Count 5.1 K/mcL (4.3-11.1)
[2020-03-12 13:30] LABS: INR 1.2
[2020-03-12 13:49] LABS: Albumin 3.8 g/dL (3.5-5.7); Albumin/Globulin Ratio 1.2 (1.1-2.2); Bilirubin,Total 0.5 mg/dL (0.3-1.0); Calcium 8.5 mg/dL (8.6-10.3); Globulin 3.3 g/dL (2.4-3.5); Magnesium 2.3 mg/dL (1.6-2.6); Potassium 4.6 mEq/L (3.5-5.1); Total Protein 7.1 g/dL (6.4-8.9)
[2020-03-12 14:03] LABS: Bacteria,Urine Few per hpf (None-Few); Bilirubin,Urine Negative (Negative); Blood,Urine Negative (Negative); Clarity,Urine Clear (Clear); Color,Urine Yellow (Yellow); Glucose,Urine (UA) 50 mg/dL (Normal); Hyaline Casts,Urine Few per lpf (None Seen); Ketones,Urine 20 mg/dL (Negative); Leukocyte Esterase,Urine Small (Negative); Mucus,Urine Few per lpf (None-Few); Nitrite,Urine Negative (Negative); PH,Urine 5.5 pH Units (5.0-8.0); Protein,Urine 30 mg/dL (Neg-Trace); Specific Gravity,Urine 1.026 (1.010-1.025); Squamous Epithelial Cell,Urine Few per hpf (None-Few); Urobilinogen,Urine Normal (Normal)
[2020-03-12] MEDS ORDERED: 0.9 % Sodium Chloride 500 ML ONE (18:02)
[2020-03-12] MEDS: hydrALAZINE 25 MG TABLET PO SCH (20:43)
[2020-03-12] MEDS ORDERED: Insulin DETEMIR 100 UNIT/ML X5UNITS SQ SCH (21:00)
[2020-03-13] MEDS: Insulin LISPRO 300 UNITS/3 ML VIAL SQ SCH ×3 (00:57→12:16)
[2020-03-13] MEDS: *HR* Enoxaparin 40 MG/0.4 ML SYRINGE SQ SCH (05:15)
[2020-03-13] MEDS: amLODIPine 5 MG TABLET PO SCH (08:16)
[2020-03-13] MEDS: hydrALAZINE 25 MG TABLET PO SCH (08:16)
[2020-03-13] MEDS: Aspirin Enteric Coated 81 MG Tablet PO SCH (08:16)
[2020-03-13] MEDS: Dexamethasone 4 MG/ML VIAL IVP SCH (08:17)
[2020-03-13] MEDS ORDERED: hydrALAZINE 25 MG TABLET PO SCH (09:00)
[2020-03-13] MEDS: Ondansetron 4 MG/2 ML VIAL IVP PRN (09:02)
[2020-03-13 12:50] VITALS: BP 155/80
== END 2020-03-13 14:54 | disposition home or self-care (01) | DRG 177 ==
LOC: 2NENU 16:45 → EMEROOARM 16:45 → 2NENU 21:30 → SUATTDRO 03-12 12:18
PROVIDERS: ADMIT Family Medicine; ATTEND Internal Medicine